=== PATIENT | female | born 1970 | race Two or more races ===

== ENCOUNTER 2025-04-13 11:26 | Emergency (ER) | payer SELFPAY ==
[~2025-04-13] VITALS: Ht 157.5 cm; Wt 79.0 kg
--- NOTE | 2025-04-13 11:43 | ECG ---
[facility] Test Date: 2025-04-13 Test Time: 11:35:13 Pat Name: DARLIN CHURCHILL Department: ED Room: Gender: F Screw Machine Operator: NAT : [id number] Requested By: CRYSTAL AYALA Order Number: [id number] Reading MD: Measurements Intervals [place] Rate: 90 P: 39 VA: 151 QRS: 58 QRSD: 90 T: 25 QT: 371 QTc: 454 Interpretive Statements Sinus rhythm Please click the below link to view image of tracing.
[2025-04-13 11:52] VITALS: PULSE 94; RESP 18; O2SAT 100
--- NOTE | 2025-04-13 12:10 | DVH ---
CT STROKE CTH INDICATION: LEFT SIDED WEAKNESS COMPARISON: None TECHNIQUE: CT of the head without intravenous contrast. RADIATION DOSE: CTDIvol: 53.4 mGy, DLP: 944.06 mGy*cm FINDINGS: There is no evidence of acute intracranial hemorrhage, extra-axial collection, mass effect, midline shift, herniation or hydrocephalus. The ventricles, sulci and cisterns are age appropriate. The dickson-white differentiation is intact. The visualized paranasal sinuses and mastoid air cells are clear. The surrounding soft tissues and osseous structures are unremarkable. IMPRESSION: No evidence of acute intracranial hemorrhage, mass effect or hydrocephalus.
--- NOTE | 2025-04-13 12:16 | ED.PDOC ---
HPI (NEURO) HPI Comments 54-year-old female presents to the ED for a chief complaint of left-sided weakness and numbness. Patient reports yesterday around 1500 she [place] Patient woke up this morning with complete numbness and weakness to the whole left side of her body and includes left-sided facial drooping. Patient is under a lot of stress at this time and presents emotional and tearful upon assessment. Patient is alert and oriented x4, is able to ambulate without assistance, and denies any pain. Patient has not had a primary care workup in the past 2-3 years but stays on her last visit was diagnosed with prediabetes. She denies any other medical history. 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 Pertinent MARKETING UNDERWRITER History Family History Family History: Reviewed,noncontributory to illness Social History Smoker: Non-Smoker Alcohol: Denies ETOH Use Drugs: Denies Drug Use Lives In: Home Constitutional: denies: chills, diaphoresis, fatigue, fever, malaise, sweats, weakness, others EENTM: denies: blurred vision, double vision, ear bleeding, ear discharge, ear drainage, ear pain, ear ringing, eye pain, eye redness, hearing loss, mouth pain, mouth swelling, nasal discharge, nose bleeding, nose congestion, nose pain, photophobia, tearing, throat pain, throat swelling, voice changes, others Respiratory: denies: cough, hemoptysis, orthopnea, SOB at rest, shortness of b reath, SOB with excertion, stridor, wheezing, others Cardiovascular: denies: chest pain, dizzy spells, diaphoresis, Dyspnea on exertion, edema, irregular heart beat, left arm pain, lightheadedness, palpitations, PND, syncope, others Gastrointestinal: denies: abdomen distended, abdominal pain, blood streaked bowels, constipated, diarrhea, dysphagia, difficulty swallowing, hematemesis, melena, nausea, poor appetite, poor fluid intake, rectal bleeding, rectal pain, vomiting, others Genitourinary: denies: abnormal vagina bleeding, burning, dyspareunia, dysuria, flank pain, frequency, hematuria, incontinence, pain, , vagina discharge, urgency, others Neurological: reports: left sided numbness, left sided weakness; denies: dizziness, fainting, headache, numbness, paresthesia, pre-existing deficit, right sided numbness, right sided weakness, seizure, speech problems, tingling, tremors, weakness, others Musculoskeletal: denies: back pain, gout, joint pain, joint swelling, muscle pain, muscle stiffness, neck pain, others Integumetry: denies: bruises, change in color, change in hair/nails, dryness, laceration, lesions, lumps, rash, wounds, others Allergic/Immunocompromised: denies: Difficulty Healing, Frequent Infections, Hives, Itching, others Hematologic/Lymphatic: denies: anemia, blood clots, easy bleeding, easy bruising, swollen glands, others Endocrine: denies: excessive hunger, excessive sweating, excessive thirst, excessive urination, flushing, intolerance to cold, intolerance to heat, unexplained weight gain, unexplained weight loss, others Psychiatric: denies: anxiety, bipolar disorder, depression, hopeless, panic disorder, schizophrenia, sleepless, suicidal, others All Other Systems: Reviewed and Negative Physical Exam General Appearance: Moderate Distress HEENT: Normal ENT Inspection, Pharynx Normal, TMs Normal Neck: Full Range of Motion, Non-Tender, Normal, Normal Inspection Respiratory: Chest Non-Tender, Lungs Clear, No Accessory Muscle Use, No Respiratory Distress, Normal Breath Sounds Cardiovascular: No Edema, No JVD, No Murmur, No Gallop, Normal Peripheral Pulses, Regular Rate/Rhythm Breast Exam: Deferred Gastrointestinal: No Organomegaly, Non Tender, No Pulsatile Mass, Normal Bowel Sounds, Soft Genitalia: Deferred Pelvic: Deferred Rectal: Deferred Extremities: No calf tenderness, Normal capillary refill, Normal inspection, Normal range of motion, Non-tender, No pedal edema Musculoskeletal : Apperance: Normal Neurologic: Alert, environmental attorney II-XII nml as Tested, No Motor Deficits, Normal Affect, Normal Mood, No Sensory Deficits Cerebellar Function: Normal Reflexes: Normal Skin: Dry, Normal Color, Warm Peripheral Pulses: 3+ Radial (R), 3+ Radial (L) Lymphatic: No Adenopathy Was a procedure done? Was a procedure done?: No Differential Diagnosis (SZ) CVA: CVA, Electrolyte Imbalance, Encephalopathy, TIA X-Ray, Labs, Meds, VS Vital Signs Date Time Temp Pulse Resp B/P (MAP) Pulse Ox O2 Delivery O2 Flow Rate FiO2 04/13/25 12:15 101 20 100 Room Air 04/13/25 12:15 98.1 101 20 155/70 (98) 100 98.1 04/13/25 11:52 94 18 100 Room Air* 0 21 04/13/25 11:35 90 04/13/25 11:27 98.6 94 18 159/60 100 98.6 04/13/25 11:27 98.6 94 18 159/60 (93) 100 98.6 Lab Test 04/13/25 13:20 04/13/25 11:38 Range/Units White Blood Count 8.4 4.4-10.8 10^3/uL Red Blood Count 5.15 4.0-5.20 10^6/uL Hemoglobin 8.6 L 12.2-16.2 g/dL Hematocrit 29.7 L 36.0-46.0 % Mean Corpuscular Volume 57.6 L 80.0-100.0 fL Mean Corpuscular Hemoglobin 16.6 L 28.0-32.0 pg Mean Corpuscular Hemoglobin Concent 28.9 L 32.0-36.0 g/dL Red Cell Distribution Width 18.1 H 11.8-14.3 % Platelet Count 413 140-450 10^3/uL Mean Platelet Volume 8.2 6.9-10.8 fL Neutrophils (%) (Auto) 72.8 37.0-80.0 % Lymphocytes (%) (Auto) 19.0 10.0-50.0 % Monocytes (%) (Auto) 5.0 0.0-12.0 % Eosinophils (%) (Auto) 2.2 0.0-7.0 % Basophils (%) (Auto) 1.0 0.0-2.0 % Neutrophils # (Auto) 6.1 1.6-8.6 10 ^3/uL Lymphocytes # (Auto) 1.6 0.4-5.4 10 ^3/uL Monocytes # (Auto) 0.4 0-1.3 10 ^3/uL Eosinophils # (Auto) 0.2 0-0.8 10 ^3/uL Basophils # (Auto) 0.1 0-0.2 10 ^3/uL Nucleated Red Blood Cells 0.0 % Platelet Estimate Adequate Hypochromasia (manual) Marked Anisocytosis (manual) Slight Microcytosis Marked Sodium Level 137 136-145 mmol/L Potassium Level 4.2 3.5-5.1 mmol/L Chloride Level 103 98-107 mmol/L Carbon Dioxide Level 24 20-31 mmol/L Anion Gap 10 5-15 Blood Urea Nitrogen 9 9-23 mg/dL Creatinine 0.62 0.550-1.02 mg/dL Glomerular Filtration Rate Calc 106 >90 mL/min BUN/Creatinine Ratio 14.5 10.0-20.0 Serum Glucose 278 H 74-106 mg/dL Calcium Level 9.5 8.7-10.4 mg/dL Troponin I High Sensitivity < 3 L </=34 ng/L POC Glucose 275 H 70-106 mg/dl Patient alert. Came in because of left-sided facial tingling. Vitals stable. Answering questions. Blood pressure slightly elevated. She is anxious. Blood sugar elevated. Establish intravenous access. Was given fluids. Was given clonidine. Emotional distress. CT of the head reviewed does not show any acute changes. Explained to the patient. Was told to follow up with her primary care physician. Was told to come back if there is any problem. Time of 1ST Reevaluation: 12:16 Reevaluation 1ST: Unchanged Patient Education/Counseling: Diagnosis, Treatment, Prognosis Family Education/Counseling: No Family Present Departure 1 Departure Time of Disposition: 13:14 Impression: Primary Impression: Uncontrolled diabetes mellitus Qualified Codes: E13.65 - Other specified diabetes mellitus with hyperglycemia Additional Impressions: Hypertensive urgency Anxiety Disposition: 01 HOME / SELF CARE / HOMELESS Condition: Good Discharged With: Self Critical Care Note Critical Care Time?: No Stability Stability form required: No I personally scribed for CRYSTAL AYALA MD ([email or web address]) on 04/13/25 at 12:16. Electronically submitted by Aurea Mosher ([facility]). CRYSTAL AYALA MD Apr 13, 2025 12:16
[2025-04-13 13:28] LABS: Nucleated Red Blood Cells % 0.0 %
[2025-04-13 13:30] LABS: Hematocrit 29.7 % (36.0-46.0); Hemoglobin 8.6 g/dL (12.2-16.2); Mean Corpuscular Hemoglobin 16.6 pg (28.0-32.0); Mean Corpuscular Volume 57.6 fL (80.0-100.0)
[2025-04-13 13:43] LABS: Chloride 103 mmol/L (98-107); Potassium 4.2 mmol/L (3.5-5.1); Sodium 137 mmol/L (136-145)
[2025-04-13 13:44] LABS: Anion Gap 10 (5-15); Calcium 9.5 mg/dL (8.7-10.4); Carbon Dioxide 24 mmol/L (20-31)
[2025-04-13 13:49] LABS: BUN/Creatinine Ratio 14.5 (10.0-20.0); Blood Urea Nitrogen 9 mg/dL (9-23)
[2025-04-13 13:50] LABS: Glucose 278 mg/dL (74-106)
[2025-04-13 14:09] LABS: Anisocytosis Slight
[2025-04-13 15:49] VITALS: BP 158/78; PULSE 94; RESP 18; TEMP 97.9; O2SAT 100
[2025-04-13] MEDS: LORazepam 0.5 MG TAB PO ONE (15:59)
[2025-04-13 16:27] LABS: Urine Protein, UAD Negative (Negative)
== END 2025-04-13 16:23 | disposition home or self-care (01) ==
LOC: ER 11:26
DX: E11.65 Type 2 diabetes mellitus with hyperglycemia (principal); I16.0 Hypertensive urgency; F41.9 Anxiety disorder, unspecified
CPT/HCPCS: 36415; 70450; 80048; 81001; 82947; 82962; 84484; 85025; 93005